=== PATIENT | male | born 1965 | race Caucasian/White ===

== ENCOUNTER 2018-11-19 11:13 | Emergency (ER) | payer BC, OTHER ==
[~2018-11-19] VITALS: Ht 175.3 cm; Wt 80.7 kg
[2018-11-19 12:12] VITALS: BP_SYST 161
[2018-11-19] MEDS ORDERED: ONDANSETRON 4 MG ODT TAB PO ONE (12:45)
[2018-11-19] MEDS ORDERED: MECLIZINE HCL 25 MG TABLET (ANITVERT) PO ONE (12:45)
[2018-11-19 12:48] LABS: BASOPHILS % (AUTO) 0.2 % (0.0-2.0); EOSINOPHILS # (AUTO) 0.2 K/uL (0.0-0.4); EOSINOPHILS % (AUTO) 1.8 % (0.0-4.0); HEMATOCRIT 45.8 % (36-54); HEMOGLOBIN 15.9 g/dL (14.0-18.0); MEAN CORPUSCULAR HEMOGLOBIN 31 pg (27-31); MEAN CORPUSCULAR HGB CONC 35 % (32-36); MEAN CORPUSCULAR VOLUME 89 fL (79.0-98.0); MONOCYTES # (AUTO) 0.6 K/uL (0.0-1.0); MONOCYTES % (AUTO) 6.7 % (1.7-9.3); NEUTROPHILS # (AUTO) 6.3 K/uL (1.8-7.7); NEUTROPHILS % (AUTO) 69.3 % (40.0-70.0); PLATELET COUNT (AUTO) 290 K/uL (130-430); RED BLOOD CELL COUNT(AUTO) 5.12 MIL/uL (4.2-6.2); WHITE BLOOD COUNT (AUTO) 9.1 K/uL (4.8-10.8)
[2018-11-19 13:05] LABS: ANION GAP 6 (5-15); CALCIUM 8.9 mg/dL (8.4-11.0); CHLORIDE 102 mmol/L (98-107); CREATININE 1.03 mg/dL (0.55-1.30); GFR AFRICAN AMERICAN 96 mL/min (>90); GLUCOSE 299 mg/dL (70-99); POTASSIUM 4.2 mmol/L (3.5-5.1); SODIUM SERUM 136 mmol/L (136-145); UREA NITROGEN, BLOOD 10 mg/dL (8-21)
[2018-11-19 13:15] LABS: ALANINE AMINOTRANSFERASE 19 U/L (12-78); ALBUMIN 3.7 g/dL (3.4-4.8); ASPARTATE AMINOTRANSFERASE 6 U/L (10-37); TOTAL BILIRUBIN 0.5 mg/dL (0.0-1.0)
[2018-11-19] MEDS ORDERED: INSULIN REGULAR, HUMAN 10 UNITS/0.1 ML INJ SUBCUT ONE (13:30)
[2018-11-19 13:36] LABS: BILIRUBIN,URINE NEGATIVE (NEGATIVE); BLOOD, URINE NEGATIVE (NEGATIVE); CLARITY/URINE CLEAR (CLEAR); COLOR,URINE YELLOW (YELLOW); GLUCOSE,URINE 3+ (NEGATIVE); KETONES,URINE TRACE (NEGATIVE); LEUKOCYTE ESTERASE ,URINE NEGATIVE (NEGATIVE); NITRITE, URINE NEGATIVE (NEGATIVE); PROTEIN URINE NEGATIVE (NEGATIVE); UROBILINOGEN,URINE 0.2 (0.2-1.0)
[2018-11-19 13:44] LABS: BACTERIA,URINE RARE /HPF (None Seen); RBC,URINE 0-3 /HPF (0-3); WBC,URINE 0-3 /HPF (0-3)
[2018-11-19 14:00] VITALS: BP_SYST 148
== END 2018-11-19 14:00 | disposition home or self-care (01) ==
LOC: SED 11:13
DX: H66.92 Otitis media, unspecified, left ear (principal); R42 Dizziness and giddiness; R73.9 Hyperglycemia, unspecified
CPT/HCPCS: 36415; 80053; 81000; 84484; 85025; 96372; 99283; J1815; J8597; Q0162

== ENCOUNTER 2020-01-26 01:21 | Emergency (ER) | payer BC ==
[~2020-01-26] VITALS: Ht 172.7 cm; Wt 81.6 kg
--- NOTE | 2020-01-26 01:21 | NUR ---
Patient triaged and placed in the tent. VSS and patient appears in no acute distress at this time.Awaiting available bed, and MD notified of need for MSE.
--- NOTE | 2020-01-26 01:22 | NUR ---
ER at bedside examining patient.
[2020-01-26 01:30] VITALS: BP_SYST 152
--- NOTE | 2020-01-26 01:49 | NUR ---
chest Xray performed in the tent.Pt tolerated well.
[2020-01-26] MEDS ORDERED: ACETAMINOPHEN 500 MG TABLET PO ONE (02:00)
--- NOTE | 2020-01-26 02:16 | NUR ---
Patient given written and verbal discharge instructions by Dr Duron and verbalizes understanding. ER MD discussed with patient the results and treatment provided. Patient in stable condition. ID arm band removed. Rx of Zinc,Azithromycin,Hydroxychloroquine,albuterol,dexamethasone given. Patient educated on pain management and to follow up with PMD. Pain Scale 0/10. Opportunity for questions provided and answered. Medication side effect fact sheet provided.
[2020-01-26 02:19] VITALS: BP_SYST 149
== END 2020-01-26 02:19 | disposition home or self-care (01) ==
LOC: SED 01:21
DX: U07.1 COVID-19 (principal); J40 Bronchitis, not specified as acute or chronic
CPT/HCPCS: 71045; 99283

== ENCOUNTER 2023-02-22 12:50 | Emergency (ER) | payer BC ==
[~2023-02-22] VITALS: Ht 172.7 cm; Wt 79.4 kg
[2023-02-22 13:04] VITALS: BP_SYST 143; PULSE 94; RESP 20; TEMP 98.4; O2SAT 99
[2023-02-22] MEDS ORDERED: BROM118S61 PO (13:12)
[2023-02-22] MEDS ORDERED: ALBMDI INH (13:12)
== END 2023-02-22 13:25 | disposition home or self-care (01) ==
LOC: SED 12:50
DX: J20.8 Acute bronchitis due to other specified organisms (principal); R05.9 Cough, unspecified; E11.9 Type 2 diabetes mellitus without complications; Z79.899 Other long term (current) drug therapy
CPT/HCPCS: 99283